=== PATIENT | male | born 1945 | race Caucasian/White ===

== ENCOUNTER 2022-06-15 10:31 | Outpatient (CLI) | payer MEDICARE | END 2022-06-15 10:32 | disposition home or self-care (01) | LOC: CSHMRI 10:31 | PROVIDERS: ATTEND Orthopaedic Surgery Orthopaedic Surgery of the Spine | DX: S22.009A Unspecified fracture of unspecified thoracic vertebra, initial encounter for closed fracture (principal) | CPT/HCPCS: 72146 ==